=== PATIENT | female | born 1960 | race Caucasian/White ===

== ENCOUNTER 2022-05-29 13:24 | Emergency (ER) | payer SELFPAY ==
[2022-05-29 13:24] VITALS: BP 151/83; PULSE 141; RESP 16; TEMP 36.6; O2SAT 98; BMI 22.3
[2022-05-29] MEDS: 0.9% Normal Saline 1,000 ML 1000 ML IV (14:30)
[2022-05-29] MEDS: Ondansetron 4 MG/2 ML Vial IV (14:34)
[2022-05-29 14:43] LABS: Absolute Lymphocyte Count 0.25 X10^3/uL (0.83-4.51); Absolute Neutrophil Count 9.6 X10^3/uL (2.0-7.7); Basophil# 0.02 X10^3/uL; Basophil% 0.2 % (0-1); Eosinophil# 0.01 X10^3/uL; Eosinophils% 0.1 % (0-5); Hematocrit 40.9 % (37-47); Hemoglobin 14.3 g/dL (12.0-15.0); Lymphocyte # 0.25 X10^3/ul (0.83-4.51); Lymphocyte % 2.4 % (19-41); Mean Corpuscular Hgb 30.2 pg (27.0-32.0); Mean Corpuscular Volume 86.5 fL (81-99); Mean Platelet Vol. 9.5 fl (6.2-12.0); Monocyte# 0.39 X10^3/uL; Monocyte% 3.8 % (0-10); NRBC Flagged by Analyzer 0 % (0-5); Neutrophil # 9.58 X10^3/uL (2.7-7.7); POSITIVE DIFFERENTIAL YES; Platelet Count 233 K/mm3 (150-450); RBC Distribution Width CV 13.7 % (11.6-14.6); RBC Distribution Width SD 42.3 fl (35.1-43.9); Red Blood Count 4.73 M/mm3 (4.2-5.4); White Blood Count 10.3 K/mm3 (4.4-11.0)
[2022-05-29 14:44] LABS: Differential Indicated SCAN CRITERIA MET
[2022-05-29 14:51] LABS: Bacteria 0 SEEN /hpf (None Seen); Mucous, Urine 0 SEEN /hpf (<or=2+); Red Blood Cells-Urine 0 SEEN /hpf (0-5); White Blood Cells 0 SEEN /hpf (0-5)
[2022-05-29 14:54] LABS: Color, Urine Yellow (Yellow); Glucose, Dipstick 100 mg/dl (Normal); Ketone-Dipstick 15 mg/dl (Negative); Leukocyte Esterase-Dipstick 100 /ul (Negative); Nitrite-Dipstick Negative (Negative); Occult Blood-Urine 10 /ul (Negative); Protein-Dipstick Negative (Negative); Urine Bilirubin Dipstick Negative (Negative); Urine Clarity Clear (Clear); Urine Urobilinogen 1 mg/dl (Normal)
[2022-05-29 15:03] LABS: ALB/GLOB Ratio 1.2 RATIO (0.9-2.4); AST(SGOT) 607 U/L (15-37); Alanine Aminotransfer ALT/SGPT 639 U/L (13-56); Alkaline Phosphatase 384 U/L (45-117); Anion Gap 7 (5-15); BUN 12 mg/dL (7-18); BUN/Creat Ratio 13.7 RATIO (10-20); Calcium,Total 9.7 mg/dL (8.5-10.1); Chloride 103 mmol/L (98-107); Creatinine, Serum 0.87 mg/dL (0.55-1.02); EST Glomerular Filtration Rate 70 mL/min (>60); Est Glom Filt Rate - Afr Amer 84 mL/min (>60); Estimated Creatinine Clearance 52.35 ml/min; Globulin 3.2 g/dL (2.2-4.2); Glucose 242 mg/dL (74-106); Lipase 5292 U/L (73-393); Potassium 3.6 mmol/L (3.5-5.1); Protein, Total 7.2 g/dL (6.4-8.2); Sodium Level 137 mmol/L (136-145); Troponin-I HS 4 pg/mL (3.0-54.0)
[2022-05-29 15:05] LABS: Squamous Epithelial Cells - UA 0-5 SEEN /hpf (5-10)
--- NOTE | 2022-05-29 15:22 | CT_ITS ---
STUDY: CT ABDOMEN AND PELVIS WITH CONTRAST REASON FOR EXAM: Female, 62 years old. Vomiting, elevated liver enz RADIATION DOSAGE (If Supplied By Facility): CTDIvol = ( 8.34 ) mGy, DLP = ( 335.84 ) mGycm TECHNIQUE: Transaxial images were obtained from the dome of the diaphragm to the symphysis pubis without oral contrast. IV 100mL Isovue-300 was administered. Sagittal and coronal images were reconstructed. Individualized dose optimization techniques were used for this CT. COMPARISON: None. FINDINGS: The visualized lung bases are unremarkable. The visualized portions of the heart are within normal limits. Dilated intrahepatic biliary ducts. The common bile duct is dilated down to the ampulla of VATER. The distal portion of the common bile duct measures 1.1 cm in transverse dimension. There is evidence of irregular density in the region of the ampulla of VATER. This may represent another mass lesion or partially calcified calculus measuring 1.1 cm x 0.9 cm. Inflammatory changes are seen in the right midabdomen surrounding the second portion of the duodenum. Small lymph nodes are seen within the mesenteric fat in that region. Correlation with ERCP is recommended. The gallbladder appears to be contracted and stone filled. Normal spleen. Normal pancreas. Normal bilateral adrenal glands. Normal right kidney. Normal left kidney. There is a small hiatal hernia. Normal small intestine. There are multiple colonic diverticula consistent with diverticulosis. The appendix is visualized and appears normal. Normal abdominal aorta. Normal inferior vena cava. Normal retroperitoneum. Normal urinary bladder. Heterogeneous enlargement of the uterus for the patient''s age. Thickened endometrium. There is a right-sided inguinal hernia containing adipose tissue. Normal osseous structures. CT/Abdomen/Pelvis W IV Cont ONLY IMPRESSION: Dilated intra and extrahepatic biliary ducts as described down to the ampulla of VATER. Heterogeneous masslike appearance in the region of the ampulla of VATER. Correlation with ERCP is recommended. Inflammatory changes are seen in the region of the second portion of the duodenum. There appears to be contracted stone filled gallbladder. Small lymph nodes are seen in the peritoneal fat in the right mid abdomen. Heterogeneous enlargement of the uterus with thickened endometrium for the patient''s age. Sigmoid diverticulosis. Electronically Signed: Mike Willard MD at 15:37 EST ,
--- NOTE | 2022-05-29 15:50 | EDS_ITS ---
HPI HPI - GI History of Present Illness Chief Complaint: Nausea/Vomiting Informant: patient Narrative Narrative: Patient presents for vomiting that started a couple hours ago after trying to eat a meal after fasting for some labs this morning. Initially she states I have been vomiting since March 23 but on further questioning it sounds like this is the fourth day of vomiting episodes since then including that day. 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 She has had prior laparotomy, but this was remote and no other abdominal surgeries. She states she had an outpatient ultrasound at [facility] and she does not know the results, replying to me I am just a layperson. 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 When asked if she wants nausea medications here initially she states no. She denies having any abdominal pain, hematemesis, bright red blood per rectum, melena, or chest symptoms. PFSH PFSH Medical History no medical history no medical history Allergy/AdvReac Type Severity Reaction Status Date / Time Sulfa (Sulfonamide Allergy Hives Verified 05/29/22 13:28 Antibiotics) Surgical History S/P laparotomy Social History Smoking Status: Never smoker ROS ROS ED Constitutional Constitutional ED: Denies chills or fever(s) Eyes Eyes: Denies change in vision or diplopia ENT ENT ED: Denies rhinorrhea or sore throat Cardiovascular Cardiovascular: Denies chest pain or palpitations Respiratory/Chest Respiratory/Chest: Denies cough or dyspnea Gastrointestinal Gastrointestinal: Reports nausea and vomiting; Denies abdominal pain or diarrhea Genitourinary Genitourinary ED: Denies dysuria or hematuria Musculoskeletal Musculoskeletal: Denies back pain or neck pain Integumentary Denies abscess or rash Neurologic Neurologic: Denies headache(s), paresthesias or weakness Psychiatric Psychiatric: Denies anxiety or suicidal thoughts EXAM Physical Exam Const Vital Signs: 05/29/22 13:24 Temperature 97.8 F Temperature Source Temporal Pulse Rate 141 H Respiratory Rate 16 Blood Pressure 151/83 H Blood Pressure Mean 105 Pulse Ox 98 Oxygen Delivery Method Room Air Positive well nourished and well developed General Appearance ED: well developed and NAD HEENT Reports moist mucous membranes normocephalic and atraumatic Eyes PERRL and EOMs intact bilaterally Neck full ROM and supple Resp normal respiratory effort and clear to auscultation bilaterally Cardio regular rate, regular rhythm and no murmurs Rate: tachycardic GI non-tender and non-distended Auscultation: normoactive bowel sounds Palpation: soft Back/Spine no CVA tenderness General Back: other FROM Extremity normal to inspection General Extremety ED: Negative for edema, pulses abnormal or tenderness General Extremity: Negative for edema or pulses abnormal Neuro oriented x3, CN's II-XII intact bilaterally and no sensory deficits noted Sensorium / Orientation: awake and alert Motor Exam: strength 5/5 throughout Skin no rashes or lesions noted and no wounds MDM MDM MDM Narrative Medical decision making narrative: Initially patient suggested that she wanted to go home and have a prescription for nausea medicine in case she decided to take it. Then we started discussing her test results and the fact that I do not have access to them, and I offered to repeat her testing so that I could get some more answers for her, she was agreeable to this, and getting a CT scan because my primary care was going to get one anyway. Her labs do show significantly elevated liver enzymes in addition to hyperbilirubinemia and a lipase that is over 5000. We did perform a CT of the abdomen/pelvis. I did review the images and the radiologist's report, consistent with possibility of a mass in the area of the ampulla of Vater, and findings consistent with biliary obstruction as well as cholelithiasis. I discussed with surgery Dr. Constantino, he does not do ERCP and the surgeon that we do have on staff that does ERCP is out all week and today is Sunday. Furthermore, there is no gastroenterology coverage today or tomorrow to do ERCP for further diagnostics. Therefore, I feel the patient would best be served transferred, she has her care in the [facility] system, and naturally wants to remain within it if possible. Spoke to the transfer center, there is capability/capacity at [facility] for this patient, accepted there by Dr. Julian. Lab Data Attestation: I reviewed the patient's lab results. Labs: Laboratory Results - last 24 hr 05/29/22 05/29/22 05/29/22 14:30 14:30 14:40 WBC 10.3 RBC 4.73 Hgb 14.3 Hct 40.9 MCV 86.5 MCH 30.2 MCHC 35.0 RDW Std Deviation 42.3 RDW Coeff of Guillermo 13.7 Plt Count 233 MPV 9.5 Immature Gran % (Auto) 0.500 Neut % (Auto) 93.0 H Lymph % (Auto) 2.4 L [place] % (Auto) 3.8 Eos % (Auto) 0.1 Baso % (Auto) 0.2 Absolute Neuts (auto) 9.6 H Absolute Lymphs (auto) 0.25 L Nucleated RBC % 0 Sodium 137 Potassium 3.6 Chloride 103 Carbon Dioxide 27.0 Anion Gap 7 BUN 12 Creatinine 0.87 Estim Creat Clear Calc 52.35 Est GFR (MDRD) Af Amer 84 Est GFR (MDRD) Non-Af 70 BUN/Creatinine Ratio 13.7 Glucose 242 H Calcium 9.7 Total Bilirubin 3.30 H AST 607 H ALT 639 H Alkaline Phosphatase 384 H Troponin I High Sens 4 Total Protein 7.2 Albumin 4.0 Globulin 3.2 Albumin/Globulin Ratio 1.2 Lipase 5292 H Urine Color Yellow Urine Clarity Clear Urine pH 5.0 Ur Specific [employer] 1.010 Urine Protein Negative Urine Glucose (UA) 100 H Urine Ketones 15 H Urine Occult Blood 10 H Urine Nitrite Negative Urine Bilirubin Negative Urine Urobilinogen 1 H Ur Leukocyte Esterase 100 H Urine RBC 0 SEEN Urine WBC 0 SEEN Ur Squamous Epith Cells 0-5 SEEN Urine Bacteria 0 SEEN Urine Mucus 0 SEEN Radiography Diagnostic Testing: Clinical Impression(s) from Imaging Studies Abdomen/Pelvis CT 05/29/22 15:22 IMPRESSION: Dilated intra and extrahepatic biliary ducts as described down to the ampulla of VATER. Heterogeneous masslike appearance in the region of the ampulla of VATER. Correlation with ERCP is recommended. Inflammatory changes are seen in the region of the second portion of the duodenum. There appears to be contracted stone filled gallbladder. Small lymph nodes are seen in the peritoneal fat in the right mid abdomen. Heterogeneous enlargement of the uterus with thickened endometrium for the patient''s age. Sigmoid diverticulosis. Electronically Signed: Mike Willard MD at 15:37 EST , Discharge Plan Triage Chief Complaint: Nausea/Vomiting ED Provider: Isaías Farmer Dx/Rx/DC Orders Clinical Impression: Biliary obstruction, Cholelithiasis, Acute pancreatitis Primary Care Provider: Urmila Meza Referrals: Urmila Meza, PA [Primary Care Provider] - Disposition Disposition: Acute Care Hospital Discharge Location: [facility]
--- NOTE | 2022-05-29 17:35 | NURSING ---
ACCEPTED AT [facility]. WAITING ON A ROOM
[2022-05-29 19:19] VITALS: BP 109/61; PULSE 107; RESP 18; TEMP 36.7; O2SAT 98
[2022-05-29 22:00] VITALS: PULSE 78; RESP 18; O2SAT 100
== END 2022-05-30 | disposition short-term general hospital (02) ==
PROVIDERS: Emergency Provider Emergency Medicine; PCP Physician Assistant; Visit Provider Emergency Medicine
DX: K80.21 Calculus of gallbladder without cholecystitis with obstruction (principal); K85.90 Acute pancreatitis without necrosis or infection, unspecified
CPT/HCPCS: 74177; 80053; 81001; 83690; 84484; 85025; 87428; 96361; 96374; 99284; J7030; Q9967; A4216; J2405